=== PATIENT | male | born 1940 | race Caucasian/White ===

== ENCOUNTER → 2020-09-07 | Outpatient (CLI) | payer MEDICARE, OTHER | LOC: CT 11:47 | DX: K86.2 Cyst of pancreas (principal); K86.89 Other specified diseases of pancreas | CPT/HCPCS: 36415; 82565; Q9967 ==

== ENCOUNTER → 2021-10-01 | Outpatient (CLI) | payer MEDICARE ==
[2021-10-01 08:24] LABS: BUN/CREATININE RATIO 16 (0-10)
== END ==
LOC: CT 07:29
PROVIDERS: Internal Medicine
DX: K86.89 Other specified diseases of pancreas (principal)
CPT/HCPCS: 36415; 80053; Q9967

== ENCOUNTER → 2021-11-27 | Outpatient (CLI) | payer MEDICARE | LOC: EMI 13:07 | DX: M54.12 Radiculopathy, cervical region (principal); M48.02 Spinal stenosis, cervical region; M48.03 Spinal stenosis, cervicothoracic region; M43.8X2 Other specified deforming dorsopathies, cervical region | CPT/HCPCS: 72141 ==

== ENCOUNTER → 2022-05-07 | Outpatient (CLI) | payer MEDICARE | LOC: CT 07:36 | DX: R10.9 Unspecified abdominal pain (principal); R19.7 Diarrhea, unspecified; R11.0 Nausea; K86.9 Disease of pancreas, unspecified; D49.0 Neoplasm of unspecified behavior of digestive system; N28.1 Cyst of kidney, acquired; K76.0 Fatty (change of) liver, not elsewhere classified | CPT/HCPCS: 36415; 74170; 82565; 84520; Q9967 ==